=== PATIENT | female | born 1995 | race Caucasian/White ===

== ENCOUNTER 2016-10-12 17:10 | Emergency (ER) | payer BC, OTHER ==
[2016-10-12 18:18] VITALS: BP 143/74; PULSE 100; RESP 18; TEMP 98.4
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
== END 2016-10-12 19:24 | disposition home or self-care (01) ==
LOC: EC 17:10
DX: R21 Rash and other nonspecific skin eruption (principal); F32.9 Major depressive disorder, single episode, unspecified; F17.200 Nicotine dependence, unspecified, uncomplicated; Z91.011 Allergy to milk products; Z91.048 Other nonmedicinal substance allergy status; Z91.038 Other insect allergy status; Z79.899 Other long term (current) drug therapy; Z79.3 Long term (current) use of hormonal contraceptives
CPT/HCPCS: 99282

== ENCOUNTER 2016-11-13 09:43 | Emergency (ER) | payer BC, OTHER ==
[2016-11-13 10:13] VITALS: RESP 18; TEMP 97.8
[2016-11-13] MEDS ORDERED: SODIUM CHLORIDE 0.9% 1,000 ML IV STA ×2 (10:32→10:33)
[2016-11-13] MEDS ORDERED: FAMOTIDINE 20 MG/2 ML VIAL IV STA (10:32)
[2016-11-13] MEDS ORDERED: METOCLOPRAMIDE 5 MG/ML 2 ML VIAL IVP STA (10:33)
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
[2016-11-13 10:52] LABS: Basophils % (A) 0 %; CH 31.5; CHCM 34.5; Eosinophils % (A) 0 %; HCT 40.4 % (34.0-46.0); HDW 2.37; HGB 13.7 gm/dL (11.4-16.0); Luc # (Auto) 0.08; Luc % (Auto) 1; Lymphocytes # (A) 0.6 k/uL (1.0-4.8); Lymphocytes % (A) 7 %; MCH 30.9 pg (25.0-35.0); MCHC 33.8 g/dL (31.0-37.0); MCV 91.5 fL (80.0-100.0); Mean Platelet Volume 8.5; Monocytes # (A) 0.4 k/uL (0-1.0); Monocytes % (A) 5 %; Neutrophils # (A) 6.9 k/uL (1.3-7.7); Neutrophils % (A) 87 %; RBC 4.42 m/uL (3.80-5.40); RDW 13.2 % (11.5-15.5); WBC (Perox) 7.96
[2016-11-13 10:56] LABS: Appearance,Urine Turbid (Clear); Bilirubin,Urine Negative (Negative); Glucose,Urine (UA) Negative (Negative); Ketones,Urine Trace (Negative); Leukocyte Esterase,Urine Negative (Negative); Mucus,Urine Rare /hpf; Nitrite,Urine Negative (Negative); Particle Count 10808; Protein,Urine Trace (Negative); Specific Gravity,Urine 1.019 (1.001-1.035); Squamous Epithelial Cell,Urine 4 /hpf (0-4); UA Billing (MACRO vs. MICRO) MICRO; Urobilinogen,Urine <2.0 mg/dL (<2.0)
[2016-11-13 11:02] LABS: ALT 25 U/L (9-52); AST 20 U/L (14-36); Alkaline Phosphatase 51 U/L (38-126); Anion Gap 11 mmol/L; Blood Urea Nitrogen 10 mg/dL (7-17); Calcium 9.4 mg/dL (8.4-10.2); Carbon Dioxide 24 mmol/L (22-30); Chloride 105 mmol/L (98-107); Glucose 92 mg/dL (74-99); Magnesium 1.7 mg/dL (1.6-2.3); Non-African American GFR(MDRD) >60 (>60 ml/min/1.73 sqM); Potassium 3.9 mmol/L (3.5-5.1); Sodium 140 mmol/L (137-145); Total Bilirubin 1.1 mg/dL (0.2-1.3)
[2016-11-13 12:45] VITALS: BP 105/98; PULSE 98
== END 2016-11-13 12:39 | disposition home or self-care (01) ==
LOC: EC 09:43
DX: O21.9 Vomiting of pregnancy, unspecified (principal); R19.7 Diarrhea, unspecified; O99.331 Smoking (tobacco) complicating pregnancy, first trimester; F17.200 Nicotine dependence, unspecified, uncomplicated; O26.891 Other specified pregnancy related conditions, first trimester; G43.909 Migraine, unspecified, not intractable, without status migrainosus; O99.341 Other mental disorders complicating pregnancy, first trimester; F31.9 Bipolar disorder, unspecified; F43.10 Post-traumatic stress disorder, unspecified; Z3A.10 10 weeks gestation of pregnancy; Z79.899 Other long term (current) drug therapy
CPT/HCPCS: 99284; 96374; 96375; 96361 ×2; 36415; 80053; 83690; 83735; 85025; 81001; 84702; J2765

== ENCOUNTER 2016-11-29 12:34 | Emergency (ER) | payer BC, OTHER ==
[2016-11-29] MEDS ORDERED: SODIUM CHLORIDE 0.9% 1,000 ML IV ONE (13:07)
[2016-11-29] MEDS ORDERED: METOCLOPRAMIDE 5 MG/ML 2 ML VIAL IVP STA (13:07)
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
[2016-11-29 13:43] LABS: Basophils % (A) 1 %; CH 31.7; CHCM 35.3; Eosinophils # (A) 0.1 k/uL (0-0.7); Eosinophils % (A) 1 %; HCT 37.4 % (34.0-46.0); HDW 2.52; HGB 13.3 gm/dL (11.4-16.0); Luc # (Auto) 0.11; Luc % (Auto) 2; Lymphocytes # (A) 1.5 k/uL (1.0-4.8); Lymphocytes % (A) 24 %; MCHC 35.5 g/dL (31.0-37.0); MCV 90.2 fL (80.0-100.0); Mean Platelet Volume 9.1; Monocytes # (A) 0.3 k/uL (0-1.0); Monocytes % (A) 5 %; Neutrophils # (A) 4.2 k/uL (1.3-7.7); Neutrophils % (A) 68 %; RBC 4.15 m/uL (3.80-5.40); WBC 6.1 k/uL (4.0-11.0); WBC (Perox) 6.43
[2016-11-29 14:00] LABS: ALT 26 U/L (9-52); AST 20 U/L (14-36); Alkaline Phosphatase 41 U/L (38-126); Anion Gap 9 mmol/L; Blood Urea Nitrogen 6 mg/dL (7-17); Calcium 9.5 mg/dL (8.4-10.2); Carbon Dioxide 22 mmol/L (22-30); Chloride 106 mmol/L (98-107); Glucose 74 mg/dL (74-99); Non-African American GFR(MDRD) >60 (>60 ml/min/1.73 sqM); Potassium 4.1 mmol/L (3.5-5.1); Sodium 137 mmol/L (137-145); Total Protein 6.4 g/dL (6.3-8.2)
[2016-11-29 14:33] VITALS: TEMP 98.5
[2016-11-29 14:34] VITALS: BP 103/51; PULSE 78; RESP 14
== END 2016-11-29 14:34 | disposition home or self-care (01) ==
LOC: EC 12:34
DX: O21.0 Mild hyperemesis gravidarum (principal); Z3A.12 12 weeks gestation of pregnancy; Z87.891 Personal history of nicotine dependence
CPT/HCPCS: 36415; 80053; 85025; 99284; 96374; J2765

== ENCOUNTER 2016-12-22 08:31 | Emergency (ER) | payer BC, OTHER ==
[2016-12-22] MEDS ORDERED: METOCLOPRAMIDE 5 MG/ML 2 ML VIAL IVP STA (08:54)
[2016-12-22] MEDS ORDERED: SODIUM CHLORIDE 0.9% 1,000 ML IV STA ×2 (08:54)
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
[2016-12-22 09:27] LABS: Basophils % (A) 0 %; CH 32.1; CHCM 35.5; Eosinophils % (A) 0 %; HCT 35.4 % (34.0-46.0); HDW 2.55; HGB 12.3 gm/dL (11.4-16.0); Luc # (Auto) 0.09; Luc % (Auto) 2; Lymphocytes # (A) 0.9 k/uL (1.0-4.8); Lymphocytes % (A) 16 %; MCH 31.4 pg (25.0-35.0); MCHC 34.6 g/dL (31.0-37.0); MCV 90.6 fL (80.0-100.0); Mean Platelet Volume 9.3; Monocytes # (A) 0.3 k/uL (0-1.0); Monocytes % (A) 5 %; Neutrophils # (A) 4.3 k/uL (1.3-7.7); Neutrophils % (A) 77 %; RDW 13.3 % (11.5-15.5); WBC 5.6 k/uL (4.0-11.0); WBC (Perox) 5.78
[2016-12-22 09:44] LABS: Amorphous Sediment,Urine Rare /hpf; Appearance,Urine Cloudy (Clear); Bacteria,Urine Rare /hpf; Bilirubin,Urine Negative (Negative); Glucose,Urine (UA) Negative (Negative); Ketones,Urine 2+ (Negative); Leukocyte Esterase,Urine Large (Negative); Mucus,Urine Many /hpf; Nitrite,Urine Negative (Negative); Particle Count 16490; Protein,Urine 1+ (Negative); RBC,Urine 2 /hpf (0-5); Specific Gravity,Urine 1.018 (1.001-1.035); Squamous Epithelial Cell,Urine 37 /hpf (0-4); UA Billing (MACRO vs. MICRO) MICRO; Urobilinogen,Urine <2.0 mg/dL (<2.0); WBC,Urine 15 /hpf (0-5)
[2016-12-22 09:54] LABS: ALT 28 U/L (9-52); AST 21 U/L (14-36); Alkaline Phosphatase 44 U/L (38-126); Anion Gap 8 mmol/L; Blood Urea Nitrogen 8 mg/dL (7-17); Calcium 9.2 mg/dL (8.4-10.2); Carbon Dioxide 23 mmol/L (22-30); Chloride 106 mmol/L (98-107); Glucose 88 mg/dL (74-99); Non-African American GFR(MDRD) >60 (>60 ml/min/1.73 sqM); Potassium 4.1 mmol/L (3.5-5.1); Sodium 137 mmol/L (137-145); Total Bilirubin 0.9 mg/dL (0.2-1.3); Total Protein 6.1 g/dL (6.3-8.2)
[2016-12-22 10:35] VITALS: BP 103/55; PULSE 85; RESP 16; TEMP 97.9
== END 2016-12-22 10:35 | disposition home or self-care (01) ==
LOC: EC 08:31
DX: O21.0 Mild hyperemesis gravidarum (principal); O20.9 Hemorrhage in early pregnancy, unspecified; O99.89 Other specified diseases and conditions complicating pregnancy, childbirth and the puerperium; R10.30 Lower abdominal pain, unspecified; Z3A.15 15 weeks gestation of pregnancy; Z87.891 Personal history of nicotine dependence; Z79.899 Other long term (current) drug therapy; Z91.011 Allergy to milk products; Z91.048 Other nonmedicinal substance allergy status
CPT/HCPCS: 36415; 86900; 86901; 80053; 85025; 81001; 87086; 99284; 96374; 96361; J2765

== ENCOUNTER 2017-02-14 10:58 | Emergency (ER) | payer BC, OTHER ==
[2017-02-14 11:06] VITALS: BP 113/66; PULSE 81; RESP 20; TEMP 97.1
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
== END 2017-02-14 11:46 | disposition home or self-care (01) ==
LOC: EC 10:58
DX: O99.89 Other specified diseases and conditions complicating pregnancy, childbirth and the puerperium (principal); R07.89 Other chest pain; Z87.891 Personal history of nicotine dependence; Z91.048 Other nonmedicinal substance allergy status; Z91.030 Bee allergy status; Z91.011 Allergy to milk products; Z3A.23 23 weeks gestation of pregnancy; Z79.899 Other long term (current) drug therapy
CPT/HCPCS: 93005; 99284

== ENCOUNTER 2017-02-27 16:44 | Outpatient (CLI) | payer BC, OTHER ==
[2017-02-27 17:32] VITALS: BP 114/58; PULSE 79; RESP 16; TEMP 96.7
[2017-02-27 17:39] LABS: Appearance,Urine Clear (Clear); Bilirubin,Urine Negative (Negative); Glucose,Urine (UA) Negative (Negative); Ketones,Urine Negative (Negative); Leukocyte Esterase,Urine Negative (Negative); Nitrite,Urine Negative (Negative); PH, Urine 7.5 (5.0-8.0); Protein,Urine Negative (Negative); Specific Gravity,Urine 1.013 (1.001-1.035); UA Billing (MACRO vs. MICRO) CHEM; Urobilinogen,Urine <2.0 mg/dL (<2.0)
== END 2017-02-27 17:56 | disposition home or self-care (01) ==
LOC: FBPOP 16:44
PROVIDERS: ATTEND Obstetrics & Gynecology
DX: O99.89 Other specified diseases and conditions complicating pregnancy, childbirth and the puerperium (principal); R10.9 Unspecified abdominal pain; Z3A.25 25 weeks gestation of pregnancy
CPT/HCPCS: 81003; 99213

== ENCOUNTER 2017-04-09 20:16 | Outpatient (CLI) | payer BC, OTHER ==
[2017-04-09 20:38] LABS: Amorphous Sediment,Urine Few /hpf; Appearance,Urine Turbid (Clear); Bilirubin,Urine Negative (Negative); Glucose,Urine (UA) Negative (Negative); Ketones,Urine Negative (Negative); Leukocyte Esterase,Urine Trace (Negative); Nitrite,Urine Negative (Negative); Particle Count 16983; Protein,Urine 1+ (Negative); RBC,Urine >182 /hpf (0-5); Specific Gravity,Urine 1.017 (1.001-1.035); Squamous Epithelial Cell,Urine 8 /hpf (0-4); UA Billing (MACRO vs. MICRO) MICRO; Urobilinogen,Urine <2.0 mg/dL (<2.0); WBC,Urine 17 /hpf (0-5)
[2017-04-09 20:39] VITALS: BP 136/62; PULSE 90; RESP 16; TEMP 96.4
[2017-04-09] MEDS ORDERED: Acetaminophen-Codeine 300-30mg TAB PO STA (20:45)
--- NOTE | 2017-07-03 09:42 | P.MSEPDOC ---
Presenting Problems - Arrival Data Date of Arrival on Unit: 04/09/17 Time of Arrival on Unit: 20:15 Mode of Transport: Ambulatory - Complaint OB-Reason for Admission/Chief Complaint: Pain Medical History - Information : 1 Para: 0 Term: 0 : 0 Abortions: Spontaneous or Elective: 0 Number of Living Children: 0 - Gestational Age Gestational Age by MARY ELLEN (wks/days): 31 Weeks and 0 Days Review of Systems - Review of Systems Constitutional: No problems Breast: No problems ENT: No problems Cardiovascular: No problems Respiratory: No problems Gastrointestinal: No problems Genitourinary: No problems Musculoskeletal: No problems Neurological: No problems Skin: No problems Vital Signs - Temperature Temperature: 96.4 F Temperature Source: Tympanic - Pulse Right Sitting Pulse Rate: 90 Pulse Assessment Method: Automatic Cuff - Respirations Respiratory Rate: 16 Oxygen Delivery Method: Room Air O2 Sat by Pulse Oximetry: 99 - Blood Pressure Right Arm Blood Pressure: 136/62 Blood Pressure Mean: 86 Blood Pressure Source: Automatic Cuff Medical Screen Scoring (Pre) - Cervical Exam Dilation: 0 cm = 0 Effacement: More than 50% = 2 Membranes: Intact - Uterine Contractions Frequency: N/A Duration: N/A Intensity: N/A - Maternal Vital Signs Maternal Temperature: N/A Maternal Respirations: N/A - Maternal Trauma Maternal Trauma: N/A - Assessment Baseline FHR: 145 Heart Rate - NICHD Category: Category I (Normal) = 0 NST: Reactive Position: N/A Station: N/A - Total Score Total Score (Pre): 2 - Level of Risk Level of Risk: Low (0-5) Physician Notification (Pre) - Physician Notified Physician Notified Date: 04/09/17 Physician Notified Time: 20:38 Physician/Practitioner Notifed:: Dr. Tanner Spoke With: Dr. Tanner Disposition - Disposition OB Disposition: Physician follow up in office, Discharge to home Discharge Date: 04/09/17 Discharge Time: 21:05 I agree with the RN Medical Screening Exam: Yes Risk & Benefit of care provided described in d/c instruction: Yes Diagnosis: FALSE LABOR BEFORE 37 COMPLETED WEEKS OF GEST, THIRD TRI
== END 2017-04-09 21:06 | disposition home or self-care (01) ==
LOC: FBPOP 20:16
PROVIDERS: ATTEND Obstetrics & Gynecology
DX: O47.03 False labor before 37 completed weeks of gestation, third trimester (principal); Z3A.31 31 weeks gestation of pregnancy
CPT/HCPCS: 59025; 81001; 87086; 99213

== ENCOUNTER 2017-05-20 17:57 | Outpatient (CLI) | payer BC, OTHER ==
[2017-05-20 19:14] VITALS: BP 126/63; PULSE 105; RESP 16; TEMP 98
--- NOTE | 2017-06-02 11:18 | P.MSEPDOC ---
Presenting Problems - Arrival Data Date of Arrival on Unit: 05/20/17 Time of Arrival on Unit: 18:00 Mode of Transport: Ambulatory - Complaint OB-Reason for Admission/Chief Complaint: Possible Onset of Labor Medical History - Information : 1 Para: 0 Term: 0 : 0 Abortions: Spontaneous or Elective: 0 Number of Living Children: 0 - Gestational Age Expected Date of Delivery: 06/11/17 Gestational Age by MARY ELLEN (wks/days): 38 Weeks and 5 Days Review of Systems - Review of Systems Constitutional: No problems Breast: No problems ENT: No problems Cardiovascular: No problems Respiratory: No problems Gastrointestinal: No problems Genitourinary: No problems Musculoskeletal: No problems Neurological: No problems Skin: No problems Vital Signs - Temperature Temperature: 98.0 F Temperature Source: Oral - Pulse Right Brachial Pulse Rate: 105 Pulse Assessment Method: Automatic Cuff - Respirations Respiratory Rate: 16 Oxygen Delivery Method: Room Air - Blood Pressure Right Arm Blood Pressure: 126/63 Blood Pressure Mean: 84 Blood Pressure Source: Automatic Cuff Medical Screen Scoring (Pre) - Cervical Exam Dilation: 0 cm = 0 Membranes: Intact - Uterine Contractions Frequency: N/A Duration: N/A Intensity: N/A - Maternal Vital Signs Maternal Temperature: N/A Signs of Preeclampsia: N/A Maternal Respirations: N/A - Maternal Trauma Maternal Trauma: N/A - Assessment Heart Rate - NICHD Category: Category I (Normal) = 0 NST: Reactive Position: N/A - Total Score Total Score (Pre): 0 - Level of Risk Level of Risk: Low (0-5) Physician Notification (Pre) - Physician Notified Physician Notified Date: 05/20/17 Physician Notified Time: 18:30 Physician/Practitioner Notifed:: Dr. Jasmine Spoke With: Dr. Jasmine New Order Received: Yes - Notification Comment Comment: d/c home Disposition - Disposition OB Disposition: Discharge to home Discharge Date: 05/20/17 Discharge Time: 19:00 I agree with the RN Medical Screening Exam: No Physician's MSE Comment: The stated gestational age at the time of admission is inaccurate. The remainder of the MSE is accurate. Risk & Benefit of care provided described in d/c instruction: Yes Diagnosis: FALSE LABOR, UNSPECIFIED
== END 2017-05-20 19:17 | disposition home or self-care (01) ==
LOC: FBPOP 17:57
PROVIDERS: ATTEND Obstetrics & Gynecology
DX: O47.03 False labor before 37 completed weeks of gestation, third trimester (principal); Z3A.36 36 weeks gestation of pregnancy
CPT/HCPCS: 59025; 99213

== ENCOUNTER 2017-06-11 11:29 | Inpatient (IN) | payer BC, OTHER ==
[2017-06-14] MEDS ORDERED: LIDOCAINE 1% (PF) 10 MG/ML (30 ML SDV) SQ PRN (06:29)
[2017-06-14] MEDS ORDERED: METHYLERGONOVINE 0.2 MG/ML 1 ML AMP IM PRN (06:29)
[2017-06-14] MEDS ORDERED: CARBOPROST TROMETHAMINE 250 MCG/ML 1 ML AMP IM PRN (06:29)
[2017-06-14] MEDS ORDERED: TERBUTALINE 1 MG/ML VIAL SQ PRN (06:29)
[2017-06-14] MEDS ORDERED: OXYTOCIN 10 UNIT/ML 1 ML VIAL IM PRN (06:29)
[2017-06-14] MEDS ORDERED: OXYTOCIN 20 UNITS/1000 ML NS 1,000 ML IV SCH ×2 (06:30→16:15)
[2017-06-14 07:01] LABS: Basophils % (A) 0 %; CH 26.8; CHCM 31.8; Eosinophils # (A) 0.1 k/uL (0-0.7); Eosinophils % (A) 1 %; HCT 31.6 % (34.0-46.0); HDW 3.15; HGB 10.3 gm/dL (11.4-16.0); Hypochromasia Slight; Luc # (Auto) 0.25; Luc % (Auto) 3; Lymphocytes # (A) 1.6 k/uL (1.0-4.8); Lymphocytes % (A) 16 %; MCH 27.5 pg (25.0-35.0); MCHC 32.5 g/dL (31.0-37.0); MCV 84.6 fL (80.0-100.0); Mean Platelet Volume 8.1; Monocytes # (A) 0.5 k/uL (0-1.0); Monocytes % (A) 5 %; Neutrophils # (A) 7.5 k/uL (1.3-7.7); Neutrophils % (A) 76 %; RBC 3.73 m/uL (3.80-5.40); WBC 9.9 k/uL (3.8-10.6); WBC (Perox) 10.34
[2017-06-14 07:14] VITALS: BMI 30.7
[2017-06-14] MEDS: LACTATED RINGERS 1,000 ML IV SCH ×3 (07:15→11:30)
[2017-06-14] MEDS ORDERED: BUTORPHANOL 1 MG/ML 1 ML VIAL IV PRN (09:26)
[2017-06-14] MEDS ORDERED: BUPIVACAINE (PF) 0.25% 30 ML VIAL ONE (10:27)
[2017-06-14] MEDS ORDERED: fentaNYL (PF) 50 MCG/ML 5 ML AMP ONE (10:27)
[2017-06-14] MEDS ORDERED: SODIUM CHLORIDE 0.9% 100 ML BAG ONE (10:27)
[2017-06-14] MEDS ORDERED: BUPIVACAINE (PF) 0.25% 25 ML, fentaNYL (PF) 200 MCG in SODIUM CHLORIDE 0.9% 71 ML EPIDURAL ONE (11:26)
[2017-06-14] MEDS ORDERED: HYDROCORTISONE 2.5% RECTAL CREAM 30 GM TUBE RECTAL PRN (16:03)
[2017-06-14] MEDS ORDERED: ACETAMINOPHEN TAB 325 MG TAB PO PRN (16:03)
[2017-06-14] MEDS ORDERED: Acetaminophen-Codeine 300-30mg TAB PO PRN ×2 (16:03)
[2017-06-14] MEDS ORDERED: SIMETHICONE 80 MG CHEWABLE PO PRN (16:03)
[2017-06-14] MEDS ORDERED: diphenhydrAMINE 25 MG CAP PO PRN (16:03)
[2017-06-14] MEDS ORDERED: ZOLPIDEM 5 MG TAB PO PRN (16:03)
[2017-06-14] MEDS ORDERED: WITCH HAZEL 1 EACH MED..PAD TOPICAL PRN (16:03)
[2017-06-14] MEDS ORDERED: diphenhydrAMINE 50 MG/ML 1 ML VIAL IVP PRN ×2 (16:03)
[2017-06-14] MEDS ORDERED: diphenhydrAMINE 50 MG CAP PO PRN (16:03)
[2017-06-14] MEDS ORDERED: LANOLIN CREAM 5 GM TUBE TOPICAL PRN (16:03)
[2017-06-14] MEDS ORDERED: BENZOCAINE/MENTHOL SPRAY 1 GM/SPRAY AEROSOL TOPICAL PRN (16:03)
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
--- NOTE | 2017-06-14 16:11 | P.PROBDLV ---
Vaginal Delivery Note - . Vaginal Delivery Note: The patient is a 22-year-old 1 para 0 admitted at 40-3/7 weeks by good dating parameters perches admitted for induction of labor with Pitocin and all signs are reassuring. Her was found with a single umbilical artery and had weekly testing after 32 weeks which was reassuring. She otherwise had a single episode of nephrolithiasis at 31 weeks which resolved. On labor and delivery, she had Pitocin augmentation started and underwent artificial rupture of membranes of clear fluid. After long discussion with anesthesia secondary to the possibility of Arnold-Chiari findings, anesthesia agreed to place an epidural which was done just before the onset of the active phase of labor. She then progressed persistently and fairly quickly through the active phase of labor to complete and 0 station. She pushed over the course of approximately 1 hour to a normal spontaneous vaginal delivery of a viable 8 lbs. 6 oz. baby boy with Apgars of 9 at 1 minute and 9 at 5 minutes delivered in the direct occiput anterior position. The placenta was delivered spontaneously, intact, and grossly normal with a grossly normal, centrally inserted 2 vessel cord. A small second-degree midline episiotomy had been cut for delivery and was repaired in standard fashion using 3-0 chromic catgut without difficulty. Estimated blood loss for the entire case was approximately 250 mL. There were no complications. All sponge, instrument, and needle counts were correct. Both mother and infant are resting comfortably in recovery.
[2017-06-14] MEDS: IBUPROFEN 600 MG TAB PO PRN (19:37)
[2017-06-14] MEDS: SENNOSIDES-DOCUSATE SODIUM 1 EACH TAB PO SCH (20:12)
[2017-06-15] MEDS: IBUPROFEN 600 MG TAB PO PRN ×3 (06:10→19:34)
--- NOTE | 2017-06-15 08:42 | P.PNOBGVD ---
Subjective - Subjective Patient reports: Reports appetite normal, Reports voiding normally, Reports pain well controlled, Reports ambulating normally : doing well Objective - Latest Vital Signs Latest vital signs: Vital Signs Temp Pulse Resp BP 06/15/17 08:00 97.3 F L 101 H 14 126/76 06/15/17 04:00 98.3 F 99 16 111/58 06/15/17 00:00 98.3 F 80 16 133/73 06/14/17 20:00 99.4 F 96 16 123/73 06/14/17 17:52 97.3 F L 107 H 16 128/70 06/14/17 17:22 96 14 117/60 06/14/17 16:52 96 14 120/60 06/14/17 16:37 84 14 115/57 06/14/17 16:18 93 14 111/62 06/14/17 16:07 92 14 120/67 06/14/17 15:52 97.9 F 105 H 18 127/68 Intake and Output 06/14/17 06/15/17 06/15/17 22:59 06:59 14:59 Intake Total 1999 Balance 1999 Intake: IV 1000 Lactated Ringers 1,000 ml 1000 @ 125 mls/hr IV .Q8H ANA LILIA Rx#:[id number] Intake, IV Titration 1000 Amount Oxytocin 20 Units/1000 ml 1000 Ns 1,000 ml @ Per Protocol IV .Q0M ANA LILIA Rx#: [id number] Other: # Voids 1 2 - Exam Lungs: bilateral: normal Chest: Normal S1, Normal S2 Extremities: Present: normal, edema (Trace to +1 bilateral edema from the mid calf.) Abdomen: Present: normal appearance, soft Uterus: Present: normal, firm (The uterine fundus as tonic and nontender below the umbilicus.) Assessment and Plan (1) Post-dates Current Visit: Yes Status: Acute Code(s): O48.0 - POST-TERM SNOMED Code(s): 00343172 (2) Normal spontaneous vaginal delivery Narrative/Plan: Continue routine care. Anticipate discharge home tomorrow pending complications. Current Visit: Yes Status: Acute Code(s): O80 - ENCOUNTER FOR FULL-TERM UNCOMPLICATED DELIVERY SNOMED Code(s): 89779257
[2017-06-15] MEDS: SENNOSIDES-DOCUSATE SODIUM 1 EACH TAB PO SCH ×2 (09:10→20:03)
[2017-06-15 17:32] VITALS: RESP 16
[2017-06-16] MEDS: IBUPROFEN 600 MG TAB PO PRN ×2 (00:50→09:53)
[2017-06-16 09:52] VITALS: BP 125/72; PULSE 104; TEMP 98.6
[2017-06-16] MEDS: SENNOSIDES-DOCUSATE SODIUM 1 EACH TAB PO SCH (09:52)
--- NOTE | 2017-06-16 10:45 | P.DS ---
Providers Date of admission: 06/14/17 06:10 Expected date of discharge: 06/16/17 Attending physician: Edward Jasmine Primary care physician: Stated None - Discharge Diagnosis(es) (1) Post-dates Current Visit: Yes Status: Acute (2) Normal spontaneous vaginal delivery Current Visit: Yes Status: Acute Hospital Course: The patient is a 22-year-old 1 para 0 admitted at 40-3/7 weeks by good dating parameters perches admitted for postdates induction of labor with all signs reassuring. Her was complicated with a finding of single umbilical artery which was managed with weekly reassuring testing after 32 weeks. She additionally had nephrolithiasis on one occasion during the at 31 weeks which resolved. Group B strep status is negative. On labor and delivery, she had Pitocin augmentation started and underwent artificial rupture of membranes. She had an epidural catheter placed for analgesia and then ultimately progressed to complete where after she pushed to a normal spontaneous vaginal delivery of a viable 8 lbs. 6 oz. baby boy with Apgars of 9 at 1 minute and 9 at 5 minutes. Her course was unremarkable vital signs remaining stable and her temperature was afebrile throughout. She was deemed stable for discharge by day #2 was discharged home to follow-up in the office in 6 weeks' time routinely. Discharge instructions included calling for any significantly increased bleeding or foul-smelling lochia, significantly increased fever or abdominal pain, perineal complaints, breast complaints, or anything else that concerned her. She is additionally instructed to have nothing in the vagina for at least 6 weeks time to include intercourse. She understood her instructions and agrees to follow up as noted above. Discharge medications included continued vitamins as she has opted to breast-feed. She additionally was to use [id number] analgesic pain medications. She was provided with a prescription for a dual electric breast pump. Maternal blood type is O+ and rubella status is immune. Procedures: #1. Pitocin induction #2. Artificial rupture of membranes #3. Epidural analgesia #4. Normal spontaneous vaginal delivery #5. Second-degree midline episiotomy and repair Patient Condition at Discharge: Good Plan - Discharge Summary New Discharge Prescriptions: No Action Pnv,Calcium 72/Iron/Folic Acid [ Plus Tablet] 1 tab PO DAILY Discharge Medication List Pnv,Calcium 72/Iron/Folic Acid [ Plus Tablet] 1 tab PO DAILY 11/29/16 [ History] Follow up Appointment(s)/Referral(s): Edward Jasmine MD [STAFF PHYSICIAN] - 6 Weeks Discharge Disposition: HOME SELF-CARE
== END 2017-06-16 13:12 | disposition home or self-care (01) | DRG 775 ==
LOC: 4FBP 06-14 06:10
PROVIDERS: ADMIT Obstetrics & Gynecology; ATTEND Obstetrics & Gynecology
PROC: 3E0R3CZ (ICD-10-PCS; principal; 2017-06-14)
PROC: 3E033VJ Introduction of Other Hormone into Peripheral Vein, Percutaneous Approach (ICD-10-PCS; principal; 2017-06-14)
PROC: 10E0XZZ Delivery of Products of Conception, External Approach (ICD-10-PCS; principal; 2017-06-14)
PROC: 10907ZC Drainage of Amniotic Fluid, Therapeutic from Products of Conception, Via Natural or Artificial Opening (ICD-10-PCS; principal; 2017-06-14)
PROC: 00HU33Z Insertion of Infusion Device into Spinal Canal, Percutaneous Approach (ICD-10-PCS; principal; 2017-06-14)
PROC: 0W8NXZZ Division of Female Perineum, External Approach (ICD-10-PCS; principal; 2017-06-14)
DX: O48.0 Post-term pregnancy (principal); F17.200 Nicotine dependence, unspecified, uncomplicated; Z37.0 Single live birth; O99.334 Smoking (tobacco) complicating childbirth; O69.89X0 Labor and delivery complicated by other cord complications, not applicable or unspecified; Z3A.40 40 weeks gestation of pregnancy; Z87.442 Personal history of urinary calculi
CPT/HCPCS: 85025; 88307

== ENCOUNTER 2017-07-13 11:40 | Emergency (ER) | payer BC, OTHER ==
[2017-07-13 12:05] VITALS: RESP 18
--- NOTE | 2017-07-13 12:11 | ED ---
General Adult HPI - General Chief complaint: Extremity Injury, Upper Stated complaint: LEFT WRIST INJURY FROM FALL Time Seen by Provider: 07/13/17 12:07 Source: patient, RN notes reviewed Mode of arrival: ambulatory Limitations: physical limitation - History of Present Illness Initial comments: 22-year-old female who presents emergency room today with chief complaint of injury to the left wrist that occurred earlier today. She does not that she lost her balance falling down the basement steps falling down and landed on the left wrist. She has mid to pain locally to the distal radius. She states worse with certain movements of flexion and extension. Patient denies any other injuries or complaints. Patient denies any recent fever, chills, shortness of breath, chest pain, back pain, abdominal pain, nausea or vomiting, numbness or tingling, dysuria or hematuria, constipation or diarrhea, headaches or visual changes, or any other complaints. - Related Data Home Medications Medication Instructions Recorded Confirmed Pnv,Calcium 72/Iron/Folic Acid 1 tab PO DAILY 11/29/16 06/14/17 [ Plus Tablet] Allergies Allergy/AdvReac Type Severity Reaction Status Date / Time milk Allergy Intermediate Nausea & Verified 07/13/17 12:05 Vomiting adhesive Allergy Rash/Hives Verified 07/13/17 12:05 insect venom Allergy Anaphylaxis Verified 07/13/17 12:05 lactose Allergy Nausea & Verified 07/13/17 12:05 Vomiting Milk Containing Products Allergy Nausea & Verified 07/13/17 12:05 Vomiting Review of Systems ROS Statement: Those systems with pertinent positive or pertinent negative responses have been documented in the HPI. ROS Other: All systems not noted in ROS Statement are negative. Past Medical History Past Medical History: Musculoskeletal Disorder Additional Past Medical History / Comment(s): chiari syndrome, bilateral hip tendanitis (r/t basic training) migraines History of Any Multi-Drug Resistant Organisms: None Reported Past Surgical History: No Surgical Hx Reported Additional Past Surgical History / Comment(s): wisdom teeth removed Past Anesthesia/Blood Transfusion Reactions: No Reported Reaction Past Psychological History: Anxiety, Bipolar, Depression, PTSD Smoking Status: Current some day smoker Past Alcohol Use History: None Reported Past Drug Use History: None Reported - Past Family History Mother Additional Family Medical History / Comment(s): bipolar, Schizophrenia General Exam - General Exam Comments Initial Comments: General: The patient is awake and alert, in no distress, and does not appear acutely ill. Neck: The neck is supple, there is no tenderness or JVD. Cardiovascular: There is a regular rate and rhythm. No murmur, rub or gallop is appreciated. Respiratory: Lungs are clear to auscultation, respirations are non-labored, breath sounds are equal. No wheezes, stridor, rales, or rhonchi. Musculoskeletal: Patient has normal appearance of left wrist no obvious deformity. Shows good range of motion. No tenderness over the radial side or into the elbow. No tenderness down to the left hand or digits. Cap refill less than 2 seconds. Sensations intact pulses equal bilaterally 2+. Patient does have tenderness over the snuffbox and distal radius. Neurological: A&O x 3. CN II-XII intact, There are no obvious motor or sensory deficits. Coordination appears grossly intact. Speech is normal. Skin: Skin is warm and dry and no rashes or lesions are noted. Psychiatric: Normal mood and affect. Limitations: physical limitation Course Vital Signs 07/13/17 11:59 Temperature 98.2 F Pulse Rate 90 Respiratory 18 Rate Blood Pressure 117/67 O2 Sat by Pulse 98 Oximetry Medical Decision Making - Medical Decision Making X-ray reviewed and negative for any acute fracture dislocation. Patient does have tenderness of possible has been splinted in a short arm thumb spica OCL. Neurovascular rechecked and intact. Patient is advised follow-up with orthopedics over the next 2 days. Disposition Clinical Impression: Left wrist injury Disposition: HOME SELF-CARE Condition: Good Instructions: Wrist Injury (ED) Additional Instructions: Please leave splint in place until follow-up orthopedics over the next 2 days. Please continue to ice elevate the affected area. Please return for any other concerns. Referrals: None,Stated [Primary Care Provider] - 1-2 days Krunal Cortez MD [Medical Doctor] - 1-2 days Time of Disposition: 12:56
--- NOTE | 2017-07-13 12:41 | XR ---
EXAMINATION TYPE: XR wrist complete LT DATE OF EXAM: 07/13/2017 COMPARISON: NONE HISTORY: 22-year-old female with wrist pain after fall TECHNIQUE: 4 views FINDINGS: The radiocarpal and distal radioulnar joints as well as the midcarpal compartment appear intact. Mild negative ulnar variance is noted. No acute fracture, subluxation, or dislocation. IMPRESSION: No acute osseous abnormality seen.
[2017-07-13 13:10] VITALS: BP 116/73; PULSE 65; TEMP 97
== END 2017-07-13 13:10 | disposition home or self-care (01) ==
LOC: EC 11:40
DX: S69.92XA Unspecified injury of left wrist, hand and finger(s), initial encounter (principal); F17.200 Nicotine dependence, unspecified, uncomplicated; Z79.899 Other long term (current) drug therapy; Z91.011 Allergy to milk products; Z91.048 Other nonmedicinal substance allergy status; Z91.030 Bee allergy status; W10.9XXA Fall (on) (from) unspecified stairs and steps, initial encounter
CPT/HCPCS: 29125; 99283

== ENCOUNTER 2017-12-22 18:56 | Emergency (ER) | payer BC, OTHER ==
[2017-12-22 19:06] VITALS: RESP 18
[2017-12-22] MEDS ORDERED: KETOROLAC 30 MG/ML 1 ML VIAL IVP STA (20:07)
--- NOTE | 2017-12-22 20:15 | ED ---
Abdominal Pain HPI - General Chief Complaint: Abdominal Pain Stated Complaint: ABDOMINAL PAIN Time Seen by Provider: 12/22/17 19:59 Source: patient, RN notes reviewed Mode of arrival: ambulatory Limitations: no limitations - History of Present Illness Initial Comments: This is a 22-year-old female who presents to the emergency department with chief complaint of abdominal pain. Patient states that she's been experiencing abdominal pain for the past 6 months since giving to her son. She states that today the pain progressively worsened. She describes the pain as constant , sharp and stabbing in her lower central abdomen. She admits to nausea and one episode of vomiting this morning. Denies fevers or chills. Denies diarrhea or constipation. She does state that she has a history of ovarian cysts. Denies any abdominal surgeries. She states that she has abnormal periods, stating that she had 3 periods last month. Denies shortness of breath or chest pain, dysuria or hematuria, dizziness or headache. - Related Data Home Medications Medication Instructions Recorded Confirmed No Known Home Medications [No 12/22/17 12/22/17 Known Home Medications] Allergies Allergy/AdvReac Type Severity Reaction Status Date / Time milk Allergy Intermediate Nausea & Verified 12/22/17 19:48 Vomiting adhesive Allergy Rash/Hives Verified 12/22/17 19:48 insect venom Allergy Anaphylaxis Verified 12/22/17 19:48 lactose Allergy Nausea & Verified 12/22/17 19:48 Vomiting Milk Containing Products Allergy Nausea & Verified 12/22/17 19:48 Vomiting Review of Systems ROS Statement: Those systems with pertinent positive or pertinent negative responses have been documented in the HPI. ROS Other: All systems not noted in ROS Statement are negative. Past Medical History Past Medical History: Musculoskeletal Disorder Additional Past Medical History / Comment(s): chiari syndrome, bilateral hip tendanitis (r/t basic training) migraines History of Any Multi-Drug Resistant Organisms: None Reported Past Surgical History: No Surgical Hx Reported Additional Past Surgical History / Comment(s): wisdom teeth removed Past Anesthesia/Blood Transfusion Reactions: No Reported Reaction Past Psychological History: Anxiety, Bipolar, Depression, PTSD Smoking Status: Current some day smoker Past Alcohol Use History: None Reported Past Drug Use History: None Reported - Past Family History Mother Additional Family Medical History / Comment(s): bipolar, Schizophrenia General Exam - General Exam Comments Initial Comments: General: Awake and alert, well-developed; in no apparent distress. HEENT: Head atraumatic, normocephalic. Pupils are equal, round and reactive to light. Extraocular movements intact. Oropharynx moist without erythema or exudate. Neck: Supple. Normal ROM. Cardiovascular: Regular rate and rhythm. No murmurs, rubs or gallops. Chest symmetrical. Respiratory: Lungs clear to auscultation bilaterally. No wheezes, rales or rhonchi. Normal respiratory effort with no use of accessory muscles. Abdomen: Soft, non-distended. Tenderness on palpation of suprapubic region and midline lower abdomen. No rigidity, rebound or guarding. Normal bowel sounds in all 4 quadrants. Musculoskeletal: Normal ROM, no tenderness bilateral upper and lower extremities. Ambulating normally. Skin: [place], warm and dry without rashes or lesions. Neurological: Alert and oriented x3. CN II-XII grossly intact. Speech is fluent and answers are appropriate. No focal neuro deficits. Psychiatric: Normal mood and affect. No overt signs of depression or anxiety noted. Limitations: no limitations Course Vital Signs 12/22/17 19:04 Temperature 98 F Pulse Rate 103 H Respiratory 18 Rate Blood Pressure 121/70 O2 Sat by Pulse 98 Oximetry Medical Decision Making - Medical Decision Making This is a 22-year-old female who presents to the emergency department with chief complaint of lower abdominal pain 6 months. Patient states that she had an increase in her abdominal pain today. Denies any hematuria, dysuria, fevers or chills, nausea or vomiting, diarrhea or constipation. Patient is tender on palpation of suprapubic region. Ultrasound was obtained which revealed evidence for a complex cyst of the right ovary. Patient does admit to a history of ovarian cysts. CBC, CMP and UA were unremarkable. Patient is in no acute distress and vital signs are stable. She will be discharged home with her recommendation to follow-up with RF TECHNICIAN. Patient is in agreement with plan and voices understanding. All questions were answered. - Lab Data Result diagrams: 12/22/17 20:20 12/22/17 20:20 Lab Results 12/22/17 12/22/17 12/22/17 Range/Units 20:20 20:20 20:20 WBC 8.4 (3.8-10.6) k/uL RBC 4.95 (3.80-5.40) m/uL Hgb 14.2 (11.4-16.0) gm/dL Hct 42.2 (34.0-46.0) % MCV 85.2 (80.0-100.0) fL MCH 28.7 (25.0-35.0) pg MCHC 33.7 (31.0-37.0) g/dL RDW 13.6 (11.5-15.5) % Plt Count 217 (150-450) k/uL Neutrophils % 65 % Lymphocytes % 25 % Monocytes % 4 % Eosinophils % 4 % Basophils % 0 % Neutrophils # 5.4 (1.3-7.7) k/uL Lymphocytes # 2.1 (1.0-4.8) k/uL Monocytes # 0.4 (0-1.0) k/uL Eosinophils # 0.4 (0-0.7) k/uL Basophils # 0.0 (0-0.2) k/uL Sodium 143 (137-145) mmol/L Potassium 3.9 (3.5-5.1) mmol/L Chloride 105 (98-107) mmol/L Carbon Dioxide 24 (22-30) mmol/L Anion Gap 14 mmol/L BUN 13 (7-17) mg/dL Creatinine 0.70 (0.52-1.04) mg/dL Est GFR (CKD-EPI)AfAm >90 (>60 ml/min/1.73 sqM) Est GFR (CKD-EPI)NonAf >90 (>60 ml/min/1.73 sqM) Glucose 89 (74-99) mg/dL Calcium 10.0 (8.4-10.2) mg/dL Total Bilirubin 0.5 (0.2-1.3) mg/dL AST 14 (14-36) U/L ALT 24 (9-52) U/L Alkaline Phosphatase 70 (38-126) U/L Total Protein 6.8 (6.3-8.2) g/dL Albumin 4.4 (3.5-5.0) g/dL Amylase 39 (30-110) U/L Lipase 57 (23-300) U/L Urine Color Urine Appearance (Clear) Urine pH (5.0-8.0) Ur Specific [place] (1.001-1.035) Urine Protein (Negative) Urine Glucose (UA) (Negative) Urine Ketones (Negative) Urine Blood (Negative) Urine Nitrite (Negative) Urine Bilirubin (Negative) Urine Urobilinogen (<2.0) mg/dL Ur Leukocyte Esterase (Negative) Urine RBC (0-5) /hpf Urine WBC (0-5) /hpf Ur Squamous Epith Cells (0-4) /hpf Amorphous Sediment (None) /hpf Urine Bacteria (None) /hpf Urine Mucus (None) /hpf Urine HCG, Qual Not Detected (Not Detectd) 12/22/17 Range/Units 20:20 WBC (3.8-10.6) k/uL RBC (3.80-5.40) m/uL Hgb (11.4-16.0) gm/dL Hct (34.0-46.0) % MCV (80.0-100.0) fL MCH (25.0-35.0) pg MCHC (31.0-37.0) g/dL RDW (11.5-15.5) % Plt Count (150-450) k/uL Neutrophils % % Lymphocytes % % Monocytes % % Eosinophils % % Basophils % % Neutrophils # (1.3-7.7) k/uL Lymphocytes # (1.0-4.8) k/uL Monocytes # (0-1.0) k/uL Eosinophils # (0-0.7) k/uL Basophils # (0-0.2) k/uL Sodium (137-145) mmol/L Potassium (3.5-5.1) mmol/L Chloride (98-107) mmol/L Carbon Dioxide (22-30) mmol/L Anion Gap mmol/L BUN (7-17) mg/dL Creatinine (0.52-1.04) mg/dL Est GFR (CKD-EPI)AfAm (>60 ml/min/1.73 sqM) Est GFR (CKD-EPI)NonAf (>60 ml/min/1.73 sqM) Glucose (74-99) mg/dL Calcium (8.4-10.2) mg/dL Total Bilirubin (0.2-1.3) mg/dL AST (14-36) U/L ALT (9-52) U/L Alkaline Phosphatase (38-126) U/L Total Protein (6.3-8.2) g/dL Albumin (3.5-5.0) g/dL Amylase (30-110) U/L Lipase (23-300) U/L Urine Color Yellow Urine Appearance Cloudy H (Clear) Urine pH 7.0 (5.0-8.0) Ur Specific [place] 1.029 (1.001-1.035) Urine Protein Trace H (Negative) Urine Glucose (UA) Negative (Negative) Urine Ketones 2+ H (Negative) Urine Blood Negative (Negative) Urine Nitrite Negative (Negative) Urine Bilirubin Negative (Negative) Urine Urobilinogen 3.0 (<2.0) mg/dL Ur Leukocyte Esterase Trace H (Negative) Urine RBC 1 (0-5) /hpf Urine WBC 2 (0-5) /hpf Ur Squamous Epith Cells 1 (0-4) /hpf Amorphous Sediment Rare H (None) /hpf Urine Bacteria Occasional H (None) /hpf Urine Mucus Moderate H (None) /hpf Urine HCG, Qual (Not Detectd) - Radiology Data Radiology results: report reviewed Transvaginal ultrasound impression: Normal uterus and endometrium. No evidence of ovarian torsion. There is a complex cyst on the right ovary that measures 3 cm. This could be hemorrhagic cyst. Correlation with test is recommended. Disposition Clinical Impression: Ovarian cyst Disposition: HOME SELF-CARE Condition: Good Instructions: Ovarian Cyst (ED) Additional Instructions: Please follow-up with RF TECHNICIAN. Please follow up with primary care provider within 1-2 days. Return to emergency department if symptoms should worsen or any concerns arise. Referrals: None,Stated [Primary Care Provider] - 1-2 days Danica Montana DO [Doctor of Osteopathic Medicine] - 1-2 days Gabriella Wu MD [STAFF PHYSICIAN] - 1-2 days Muna Chiu MD [STAFF PHYSICIAN] - 1-2 days Time of Disposition: 22:26
[2017-12-22 20:38] LABS: Basophils % (A) 0 %; Eosinophils # (A) 0.4 k/uL (0-0.7); Eosinophils % (A) 4 %; HCT 42.2 % (34.0-46.0); HGB 14.2 gm/dL (11.4-16.0); Lymphocytes # (A) 2.1 k/uL (1.0-4.8); Lymphocytes % (A) 25 %; MCH 28.7 pg (25.0-35.0); MCHC 33.7 g/dL (31.0-37.0); MCV 85.2 fL (80.0-100.0); Mean Platelet Volume 8.2; Monocytes # (A) 0.4 k/uL (0-1.0); Monocytes % (A) 4 %; Neutrophils # (A) 5.4 k/uL (1.3-7.7); Neutrophils % (A) 65 %; Platelet Count 217 k/uL (150-450); RBC 4.95 m/uL (3.80-5.40); RDW 13.6 % (11.5-15.5); WBC 8.4 k/uL (3.8-10.6)
[2017-12-22 20:41] LABS: Amorphous Sediment,Urine Rare /hpf; Appearance,Urine Cloudy (Clear); Bacteria,Urine Occasional /hpf; Bilirubin,Urine Negative (Negative); Blood,Urine Negative (Negative); Color,Urine Yellow; Glucose,Urine (UA) Negative (Negative); Ketones,Urine 2+ (Negative); Leukocyte Esterase,Urine Trace (Negative); Mucus,Urine Moderate /hpf; Nitrite,Urine Negative (Negative); Protein,Urine Trace (Negative); RBC,Urine 1 /hpf (0-5); Specific Gravity,Urine 1.029 (1.001-1.035); Squamous Epithelial Cell,Urine 1 /hpf (0-4); WBC,Urine 2 /hpf (0-5)
[2017-12-22 20:44] LABS: ALT 24 U/L (9-52); AST 14 U/L (14-36); Albumin 4.4 g/dL (3.5-5.0); Alkaline Phosphatase 70 U/L (38-126); Amylase 39 U/L (30-110); Anion Gap 14 mmol/L; Blood Urea Nitrogen 13 mg/dL (7-17); Carbon Dioxide 24 mmol/L (22-30); Chloride 105 mmol/L (98-107); Glucose 89 mg/dL (74-99); Lipase 57 U/L (23-300); Potassium 3.9 mmol/L (3.5-5.1); Sodium 143 mmol/L (137-145); Total Bilirubin 0.5 mg/dL (0.2-1.3); Total Protein 6.8 g/dL (6.3-8.2)
--- NOTE | 2017-12-22 21:54 | US ---
EXAMINATION TYPE: US transvaginal DATE OF EXAM: 12/22/2017 COMPARISON: NONE CLINICAL HISTORY: Pain. Pelvic pain for 6 months since giving TECHNIQUE: TV. Date of LMP: 12-13-2017 EXAM MEASUREMENTS: Uterus: 8.0 x 4.9 x 3.3 cm Endometrial Stripe: 0.5 cm Right Ovary: 3.6 x 2.7 x 2.6 cm Left Ovary: 2.7 x 1.8 x 1.7 cm 1. Uterus: Anteverted wnl 2. Endometrium: wnl 3. Right Ovary: appearance of involuting cyst seen measuring 2.6cm 4. Left Ovary: wnl Spectral, color and waveform doppler imaging shows good arterial and venous flow within the ovaries ; there is no evidence for ovarian torsion. 5. Bilateral Adnexa: wnl 6. Posterior cul-de-sac: wnl IMPRESSION: Normal uterus and endometrium. No evidence of ovarian torsion. There is a complex cyst on the right ovary that measures 3 cm. This could be hemorrhagic cyst. Correlation with test is recommended.
[2017-12-22 22:38] VITALS: BP 147/80; PULSE 89; TEMP 98.8
== END 2017-12-22 22:37 | disposition home or self-care (01) ==
LOC: EC 18:56
DX: N83.201 Unspecified ovarian cyst, right side (principal); F17.200 Nicotine dependence, unspecified, uncomplicated; Z91.011 Allergy to milk products; Z91.048 Other nonmedicinal substance allergy status; Z91.038 Other insect allergy status
CPT/HCPCS: 36415; 80053; 82150; 83690; 85025; 81001; 81025; 87086; 93975; 76830; 99284; 96374; J1885

== ENCOUNTER 2019-01-21 12:55 | Outpatient (CLI) | payer OTHER ==
[2019-01-21 13:45] VITALS: BP 121/67; PULSE 104; RESP 16; TEMP 98.3
--- NOTE | 2019-02-22 10:11 | P.MSEPDOC ---
Presenting Problems - Arrival Data Date of Arrival on Unit: 01/21/19 Time of Arrival on Unit: 13:06 Mode of Transport: Ambulatory - Complaint OB-Reason for Admission/Chief Complaint: Rule Out PROM Comment: pt arrived c/o questionable rom pt states she ahd a gush of fluid at 11 am clear fluid and some scant leakage after that Medical History - Information : 2 Para: 1 Term: 1 : 0 Abortions: Spontaneous or Elective: 0 Number of Living Children: 1 - Gestational Age Gestational Age by MARY ELLEN (wks/days): 38 Weeks and 3 Days - History Complications: Smoker Review of Systems - Review of Systems Constitutional: No problems Breast: No problems ENT: No problems Cardiovascular: No problems Respiratory: No problems Gastrointestinal: No problems Genitourinary: No problems Musculoskeletal: No problems Neurological: Dizziness Skin: No problems Vital Signs - Temperature Temperature: 98.3 F Temperature Source: Oral - Pulse Right Brachial Pulse Rate: 104 Pulse Assessment Method: Automatic Cuff - Respirations Respiratory Rate: 16 Oxygen Delivery Method: Room Air - Blood Pressure Right Arm Blood Pressure: 121/67 Blood Pressure Mean: 85 Blood Pressure Source: Automatic Cuff Medical Screen Scoring (Pre) - Cervical Exam Dilation: 1-3 cm = 1 Effacement: Exam Deferred Membranes: Intact - Uterine Contractions Frequency: N/A Duration: N/A Intensity: N/A - Maternal Vital Signs Maternal Temperature: N/A Maternal Blood Pressure: N/A Signs of Preeclampsia: Headache = 1 Maternal Respirations: N/A - Pain Assessment Pain Location and Character: Back Pain Scale Used: Numeric (1 - 10) Pain Intensity: 6 Pain Management Goal: 2 Pain Description: Sharp Pain Radiation Location: n/a Pain Frequency: Occasional Pain Behavior: Vocalization Pain Aggravating Factors: Walking Non-Pharmacological Interventions: Relaxation Technique - Maternal Trauma Maternal Trauma: N/A - Assessment Baseline FHR: 130 Heart Rate - NICHD Category: Category I (Normal) = 0 - Total Score Total Score (Pre): 2 Physician Notification (Post) - Physician Notified Physician Notified Date: 01/21/19 Physician Notified Time: 14:45 Spoke With: dr flores New Order Received: Yes - Notification Comment Comment: reactive NST. [place] TO HOME Disposition - Disposition OB Disposition: Discharge to home Discharge Date: 01/21/19 Discharge Time: 14:45 I agree with the RN Medical Screening Exam: Yes Risk & Benefit of care provided described in d/c instruction: Yes Diagnosis: RELATED CONDITIONS, UNSPECIFIED, THIRD TRIMESTER
== END 2019-01-21 14:45 | disposition home or self-care (01) ==
LOC: FBPOP 12:55
PROVIDERS: ATTEND Obstetrics & Gynecology
DX: O26.93 Pregnancy related conditions, unspecified, third trimester (principal); O99.333 Smoking (tobacco) complicating pregnancy, third trimester; F17.200 Nicotine dependence, unspecified, uncomplicated; Z3A.38 38 weeks gestation of pregnancy
CPT/HCPCS: 59025; 84112; 99213

== ENCOUNTER 2019-02-01 13:36 | Inpatient (IN) | payer OTHER ==
[2019-02-04] MEDS ORDERED: TERBUTALINE 1 MG/ML VIAL SQ PRN (06:40)
[2019-02-04] MEDS ORDERED: LIDOCAINE 0.5% (PF) 5 MG/ML (50 ML SDV) SQ PRN (06:40)
[2019-02-04] MEDS ORDERED: METHYLERGONOVINE 0.2 MG/ML 1 ML AMP IM PRN (06:40)
[2019-02-04] MEDS ORDERED: CARBOPROST TROMETHAMINE 250 MCG/ML 1 ML AMP IM PRN (06:40)
[2019-02-04] MEDS ORDERED: OXYTOCIN 10 UNIT/ML 1 ML VIAL IM PRN (06:40)
[2019-02-04] MEDS ORDERED: OXYTOCIN 30 UNITS/500 ML NS 30 UNIT in SALINE 1 500ML.BAG IV SCH (06:45)
[2019-02-04 06:57] VITALS: BMI 29.3
[2019-02-04 06:58] LABS: Basophils % (A) 0 %; Eosinophils # (A) 0.1 k/uL (0-0.7); Eosinophils % (A) 1 %; HCT 33.6 % (34.0-46.0); HGB 11.5 gm/dL (11.4-16.0); Lymphocytes # (A) 2.3 k/uL (1.0-4.8); Lymphocytes % (A) 19 %; MCH 30.5 pg (25.0-35.0); MCHC 34.3 g/dL (31.0-37.0); Mean Platelet Volume 8.1; Monocytes # (A) 0.5 k/uL (0-1.0); Monocytes % (A) 4 %; Neutrophils # (A) 8.9 k/uL (1.3-7.7); Neutrophils % (A) 74 %; Platelet Count 248 k/uL (150-450); RBC 3.77 m/uL (3.80-5.40); RDW 14.7 % (11.5-15.5); WBC 12.1 k/uL (3.8-10.6)
[2019-02-04] MEDS: LACTATED RINGERS 1,000 ML IV SCH ×2 (07:04→09:07)
[2019-02-04] MEDS ORDERED: BUTORPHANOL 1 MG/ML 1 ML VIAL IV PRN (08:37)
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
[2019-02-04] MEDS ORDERED: ROPIVACAINE 5MG/ML 20ML VIAL ONE (08:44)
[2019-02-04] MEDS ORDERED: SODIUM CHLORIDE 0.9% 100 ML BAG ONE (08:44)
[2019-02-04] MEDS ORDERED: fentaNYL (PF) 50 MCG/ML 5 ML AMP ONE (08:44)
[2019-02-04] MEDS ORDERED: diphenhydrAMINE 50 MG/ML 1 ML VIAL IVP PRN ×3 (12:41→15:31)
[2019-02-04] MEDS ORDERED: ACETAMINOPHEN TAB 325 MG TAB PO PRN (15:31)
[2019-02-04] MEDS ORDERED: diphenhydrAMINE 50 MG CAP PO PRN (15:31)
[2019-02-04] MEDS ORDERED: SIMETHICONE 80 MG CHEWABLE PO PRN (15:31)
[2019-02-04] MEDS ORDERED: BENZOCAINE/MENTHOL SPRAY 1 GM/SPRAY AEROSOL TOPICAL PRN (15:31)
[2019-02-04] MEDS ORDERED: diphenhydrAMINE 25 MG CAP PO PRN (15:31)
[2019-02-04] MEDS ORDERED: HYDROCORTISONE 2.5% RECTAL CREAM 30 GM TUBE RECTAL PRN (15:31)
[2019-02-04] MEDS ORDERED: ZOLPIDEM 5 MG TAB PO PRN (15:31)
[2019-02-04] MEDS ORDERED: HYDROcodone/APAP 5-325MG 1 EACH TAB PO PRN (15:31)
[2019-02-04] MEDS ORDERED: LANOLIN CREAM 5 GM TUBE TOPICAL PRN (15:31)
[2019-02-04] MEDS ORDERED: WITCH HAZEL 1 EACH MED..PAD TOPICAL PRN (15:31)
[2019-02-04] MEDS ORDERED: HYDROcodone/APAP 7.5-325MG 1 EACH TAB PO PRN (15:31)
--- NOTE | 2019-02-04 15:35 | P.PROBDLV ---
Vaginal Delivery Note - . Vaginal Delivery Note: The patient is a 23-year-old 2 para 1001 admitted at 40-3/7 weeks by good dating parameters. She is admitted for induction of labor with a favorable cervix. Her has been uncomplicated and group B strep status is negative. On labor and delivery, she had Pitocin started followed by artificial rupture of membranes demonstrating clear fluid. She had an epidural catheter placed for analgesia and then made fairly quick inconsistent progress through t he active phase of labor to complete. She pushed over the course of 15 minutes to a normal spontaneous vaginal delivery of a viable 8 lbs. 7 oz. baby boy with Apgars of 9 at 1 minute and 9 at 5 minutes delivered in the right occiput anterior position. The placenta was delivered spontaneously, intact, and grossly normal with a grossly normal three-vessel cord inserted approximate 4 cm from the margin of the placental disc. There were no lacerations of the perineum, vagina, or cervix. Estimated blood loss for the case is approximately 100 mL. There were no complications. Both mother and are resting comfortably in recovery.
[2019-02-04] MEDS ORDERED: OXYTOCIN 20 UNITS/1000 ML NS 1,000 ML IV SCH (15:45)
[2019-02-04] MEDS: IBUPROFEN 600 MG TAB PO PRN (16:15)
[2019-02-04] MEDS: SENNOSIDES-DOCUSATE SODIUM 1 EACH TAB PO SCH (19:40)
[2019-02-05] MEDS: IBUPROFEN 600 MG TAB PO PRN ×3 (02:14→16:15)
[2019-02-05] MEDS: SENNOSIDES-DOCUSATE SODIUM 1 EACH TAB PO SCH (08:24)
--- NOTE | 2019-02-05 10:00 | P.DS ---
Providers Date of admission: 02/04/19 06:26 Expected date of discharge: 02/05/19 Attending physician: Edward Jasmine Primary care physician: Stated None - Discharge Diagnosis(es) (1) Term Current Visit: Yes Status: Acute (2) Normal spontaneous vaginal delivery Current Visit: Yes Status: Acute Hospital Course: The patient is a 23-year-old 2 para 1001 admitted at 40-3/7 weeks by good dating parameters. She is admitted for postdates induction of labor with all signs reassuring. Her has been uncomplicated and group B strep status is negative. On labor and delivery, she had Pitocin started followed by artificial rupture of membranes demonstrating clear fluid. She later had an epidural catheter placed for analgesia and made fairly quick progress through the active phase of labor to complete. She then pushed to a normal spontaneous vaginal delivery of a viable 8 lbs. 7 oz. baby boy with Apgars of 9 at 1 minute and 9 at 5 minutes. Her post course was unremarkable with vital signs remaining stable and her temperature was afebrile throughout. She was deemed stable for discharge on day 1 was discharged home to follow-up in the office in 6 weeks' time routinely. Discharge instructions included calling for any significantly increased bleeding or foul-smelling lochia, significantly increased fever or abdominal pain, perineal complaints, breast complaints, or anything else that concerned her. She was additionally instructed to have nothing in the vagina and for at least 6 weeks time to include intercourse. She understood her instructions and agrees to follow up as noted above. Discharge medications included continued vitamins as she has opted to breast-feed as well as [id number] analgesic pain medications. Maternal blood type is O+ and rubella status is immune. Procedures: #1. Pitocin induction #2. Artificial rupture of membranes #3. Epidural analgesia #4. Normal spontaneous vaginal delivery Patient Condition at Discharge: Good Plan - Discharge Summary New Discharge Prescriptions: No Action Pnv No.95/Ferrous Fum/Folic AC [ Multivitamin Tablet] 1 tab PO DAILY Omeprazole 1 tab PO DAILY Sertraline [Zoloft] 25 mg PO DAILY Discharge Medication List Pnv No.95/Ferrous Fum/Folic AC [ Multivitamin Tablet] 1 tab PO DAILY 01/21/19 [History] Omeprazole 1 tab PO DAILY 02/04/19 [History] Sertraline [Zoloft] 25 mg PO DAILY 02/04/19 [History] Follow up Appointment(s)/Referral(s): Edward Jasmine MD [STAFF PHYSICIAN] - 6 Weeks Discharge Disposition: HOME SELF-CARE
[2019-02-05 16:08] VITALS: BP 122/65; PULSE 95; RESP 14; TEMP 98.4
== END 2019-02-05 17:05 | disposition home or self-care (01) | DRG 806 ==
LOC: 4FBP 02-04 06:26
PROVIDERS: ADMIT Obstetrics & Gynecology; ATTEND Obstetrics & Gynecology
PROC: 10E0XZZ Delivery of Products of Conception, External Approach (ICD-10-PCS; principal; 2019-02-04)
PROC: 10907ZC Drainage of Amniotic Fluid, Therapeutic from Products of Conception, Via Natural or Artificial Opening (ICD-10-PCS; 2019-02-04)
PROC: 3E033VJ Introduction of Other Hormone into Peripheral Vein, Percutaneous Approach (ICD-10-PCS; 2019-02-04)
PROC: 00HU33Z Insertion of Infusion Device into Spinal Canal, Percutaneous Approach (ICD-10-PCS; 2019-02-04)
PROC: 3E0R3BZ Introduction of Anesthetic Agent into Spinal Canal, Percutaneous Approach (ICD-10-PCS; 2019-02-04)
DX: O48.0 Post-term pregnancy (principal); O99.354 Diseases of the nervous system complicating childbirth; Z37.0 Single live birth; O99.344 Other mental disorders complicating childbirth; O99.334 Smoking (tobacco) complicating childbirth; F17.200 Nicotine dependence, unspecified, uncomplicated; F43.10 Post-traumatic stress disorder, unspecified; F60.9 Personality disorder, unspecified; F41.9 Anxiety disorder, unspecified; F32.9 Major depressive disorder, single episode, unspecified; O99.62 Diseases of the digestive system complicating childbirth; K21.9 Gastro-esophageal reflux disease without esophagitis; G43.909 Migraine, unspecified, not intractable, without status migrainosus; Z3A.40 40 weeks gestation of pregnancy; Z79.899 Other long term (current) drug therapy; Z91.410 Personal history of adult physical and sexual abuse; Z81.8 Family history of other mental and behavioral disorders; Z91.5 Personal history of self-harm; Z91.038 Other insect allergy status
CPT/HCPCS: 85025; 86850; 86900; 86901

== ENCOUNTER → 2019-02-20 | Outpatient (CLI) | payer OTHER ==
--- NOTE | 2019-02-20 11:52 | XR ---
EXAMINATION TYPE: XR ribs RT w pa chest xray DATE OF EXAM: 02/20/2019 COMPARISON: NONE HISTORY: Right rib pain TECHNIQUE: Right ribs are examined in 2 views. Exam is supplemented with a frontal chest. FINDINGS: Size is normal. Pulmonary vasculature is normal. The lungs are clear. No displaced rib fractures are evident. IMPRESSION: Normal right ribs
== END | disposition home or self-care (01) ==
LOC: RADXRYALE 11:30
PROVIDERS: ATTEND Internal Medicine
DX: R07.81 Pleurodynia (principal)

== ENCOUNTER 2019-02-23 00:57 | Observation (INO) | payer OTHER ==
--- NOTE | 2019-02-23 01:34 | ED ---
Abdominal Pain HPI - General Chief Complaint: Abdominal Pain Stated Complaint: Rib Pain Time Seen by Provider: 02/23/19 01:08 Source: EMS Mode of arrival: EMS - History of Present Illness Initial Comments: This patient is a 23-year-old woman who is transferred here from [facility] [place] area she states that she has been having right upper quadrant pain which let her to go to the hospital there. She states that she first started experiencing this midway through her first which was approximately 18 months ago. She states symptoms have been intermittent since that time, though they seemed to become more regular while she was having her second . She states she delivered proximal 2 weeks ago. The patient states the pain is sharp, has been more constant over the past couple of days. She states it is moderately severe now those worse before she had some pain medication. She had not noted other worsening or relieving factors. She denies any associated symptoms. MD Complaint: abdominal pain -: month(s) Location: RUQ Radiation: none Migration to: no migration Severity: moderate Quality: stabbing Consistency: intermittent Improves With: nothing Worsens With: nothing Associated Symptoms: denies other symptoms - Related Data Home Medications Medication Instructions Recorded Confirmed Pnv No.95/Ferrous Fum/Folic AC 1 tab PO DAILY 01/21/19 02/04/19 [ Multivitamin Tablet] Omeprazole 1 tab PO DAILY 02/04/19 02/04/19 Sertraline [Zoloft] 25 mg PO DAILY 02/04/19 02/04/19 Allergies Allergy/AdvReac Type Severity Reaction Status Date / Time adhesive Allergy Rash/Hives Verified 02/23/19 01:06 insect venom Allergy Anaphylaxis Verified 02/23/19 01:06 Review of Systems ROS Statement: Those systems with pertinent positive or pertinent negative responses have been documented in the HPI. ROS Other: All systems not noted in ROS Statement are negative. Constitutional: Denies: fever, chills Respiratory: Denies: cough, dyspnea Cardiovascular: Denies: chest pain, palpitations, orthopnea, edema, syncope Gastrointestinal: Reports: abdominal pain. Denies: vomiting, diarrhea, constipation, melena, hematochezia Genitourinary: Reports: other (Still having small amount of lochia). Denies: dysuria, frequency, hematuria Musculoskeletal: Denies: back pain Skin: Denies: rash Neurological: Denies: headache, weakness, numbness Past Medical History Past Medical History: Musculoskeletal Disorder Additional Past Medical History / Comment(s): chiari syndrome, bilateral hip tendanitis (r/t basic training) migraines History of Any Multi-Drug Resistant Organisms: None Reported Past Surgical History: No Surgical Hx Reported Additional Past Surgical History / Comment(s): wisdom teeth removed Past Anesthesia/Blood Transfusion Reactions: No Reported Reaction Past Psychological History: Anxiety, Bipolar, Depression, PTSD Smoking Status: Former smoker Past Alcohol Use History: None Reported Past Drug Use History: None Reported - Past Family History Mother Additional Family Medical History / Comment(s): bipolar, Schizophrenia General Exam General appearance: alert, in no apparent distress Head exam: Present: atraumatic, normocephalic Eye exam: Present: normal appearance. Absent: scleral icterus, conjunctival injection ENT exam: Present: normal oropharynx Respiratory exam: Present: normal lung sounds bilaterally. Absent: respiratory distress, wheezes, rales, rhonchi, stridor Cardiovascular Exam: Present: regular rate, normal rhythm, normal heart sounds. Absent: systolic murmur, diastolic murmur, rubs, gallop GI/Abdominal exam: Present: soft, tenderness (Mild right upper quadrant tenderness), normal bowel sounds. Absent: distended, guarding, rebound, rigid, organomegaly, mass, pulsatile mass, hernia Extremities exam: Present: normal inspection, normal capillary refill. Absent: pedal edema, calf tenderness Back exam: Present: normal inspection. Absent: CVA tenderness (R), CVA tenderness (L) Neurological exam: Present: alert Skin exam: Present: warm, dry, intact, normal color. Absent: rash Course Vital Signs 02/23/19 01:02 Temperature 97.8 F Pulse Rate 59 L Respiratory 16 Rate Blood Pressure 109/73 O2 Sat by Pulse 96 Oximetry Disposition Clinical Impression: Abdominal pain, Transaminitis Disposition: ADMITTED IP TO THIS HOSP Condition: Fair Is patient prescribed a controlled substance at d/c from ED?: No Referrals: Erendira Monroy MD [Primary Care Provider] - 1-2 days
--- NOTE | 2019-02-23 01:49 | US ---
EXAM: US Abdomen Limited, Right Upper Quadrant CLINICAL HISTORY: ITS.REASON US Reason: Pain, attention RUQ TECHNIQUE: Real-time ultrasound of the right upper quadrant with image documentation. COMPARISON: No relevant prior studies available. FINDINGS: Liver: Unremarkable. No mass. No intrahepatic bile duct dilation. Gallbladder: Multiple gallstones. No wall thickening. No pericholecystic fluid. Common bile duct: Unremarkable. No stones. No dilation. Pancreas: Unremarkable. Right kidney: No stones. No solid mass. No hydronephrosis. IMPRESSION: Cholelithiasis without evidence of cholecystitis.
[2019-02-23] MEDS ORDERED: MORPHINE SULFATE 4 MG/ML SYRINGE IV PRN (03:22)
[2019-02-23] MEDS ORDERED: ONDANSETRON 4 MG/2 ML VIAL IVP PRN (03:22)
[2019-02-23] MEDS ORDERED: NALOXONE 0.4 MG/ML 1 ML VIAL IV PRN (03:22)
[2019-02-23] MEDS: SODIUM CHLORIDE 0.9% 1,000 ML IV SCH ×3 (03:57→19:07)
[2019-02-23] MEDS: FAMOTIDINE 20 MG TAB PO SCH ×2 (07:58→19:07)
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
[2019-02-23] MEDS ORDERED: MORPHINE SULFATE 2 MG/ML SYRINGE IV PRN (11:57)
[2019-02-23] MEDS ORDERED: PIPERACILLIN-TAZOBACTAM 3.375 GM in SODIUM CHLORIDE 0.9% 100 ML IVPB SCH (12:00)
[2019-02-23 12:53] LABS: ALT 65 U/L (9-52); AST 54 U/L (14-36); Albumin 3.4 g/dL (3.5-5.0); Alkaline Phosphatase 158 U/L (38-126); Anion Gap 5 mmol/L; Blood Urea Nitrogen 10 mg/dL (7-17); Carbon Dioxide 23 mmol/L (22-30); Chloride 112 mmol/L (98-107); Glucose 92 mg/dL (74-99); Potassium 3.8 mmol/L (3.5-5.1); Sodium 140 mmol/L (137-145); Total Bilirubin 0.6 mg/dL (0.2-1.3); Total Protein 5.7 g/dL (6.3-8.2)
[2019-02-23 13:04] LABS: Basophils # (A) 0.1 k/uL (0-0.2); Basophils % (A) 1 %; Eosinophils # (A) 0.2 k/uL (0-0.7); Eosinophils % (A) 3 %; HCT 37.2 % (34.0-46.0); HGB 11.9 gm/dL (11.4-16.0); Lymphocytes # (A) 1.9 k/uL (1.0-4.8); Lymphocytes % (A) 27 %; MCH 28.5 pg (25.0-35.0); MCHC 31.9 g/dL (31.0-37.0); MCV 89.3 fL (80.0-100.0); Mean Platelet Volume 7.8; Monocytes # (A) 0.4 k/uL (0-1.0); Monocytes % (A) 5 %; Neutrophils # (A) 4.4 k/uL (1.3-7.7); Neutrophils % (A) 63 %; Platelet Count 289 k/uL (150-450); RBC 4.16 m/uL (3.80-5.40); RDW 14.5 % (11.5-15.5)
[2019-02-23] MEDS: HEPARIN SODIUM,PORCINE 5,000 UNIT/ML 1 ML VIAL SQ SCH ×2 (16:04→23:03)
[2019-02-23] MEDS: PIPERACILLIN-TAZOBACTAM 3.375 GM in SODIUM CHLORIDE 0.9% 100 ML IVPB SCH (23:08)
[2019-02-24] MEDS: SODIUM CHLORIDE 0.9% 1,000 ML IV SCH ×3 (04:17→20:19)
[2019-02-24 07:47] LABS: ALT 48 U/L (9-52); AST 29 U/L (14-36); Albumin 3.4 g/dL (3.5-5.0); Alkaline Phosphatase 147 U/L (38-126); Anion Gap 5 mmol/L; Blood Urea Nitrogen 7 mg/dL (7-17); Carbon Dioxide 23 mmol/L (22-30); Chloride 112 mmol/L (98-107); Glucose 80 mg/dL (74-99); Potassium 4.4 mmol/L (3.5-5.1); Sodium 140 mmol/L (137-145); Total Bilirubin 0.7 mg/dL (0.2-1.3); Total Protein 5.7 g/dL (6.3-8.2)
[2019-02-24] MEDS ORDERED: BUPIVACAIN-EPI 0.25%-1:200,000 30 ML VIAL SQ ONE ×2 (08:36)
[2019-02-24] MEDS ORDERED: MIDAZOLAM 2 MG/2 ML VIAL IV PRN (08:38)
[2019-02-24] MEDS ORDERED: HYDROmorphone 0.5 MG/0.5 ML SYRINGE IVP PRN (08:38)
[2019-02-24] MEDS ORDERED: LIDOCAINE 1% 20 ML VIAL (10MG/ML) FOR IV START INTRADERMA PRN (08:38)
[2019-02-24] MEDS ORDERED: DEXAMETHASONE SOD PHOSPHATE 10 MG/ML 1 ML VIAL IV ONE (08:38)
[2019-02-24] MEDS ORDERED: LACTATED RINGERS 1,000 ML IV SCH (08:45)
[2019-02-24] MEDS ORDERED: KETOROLAC 30 MG/ML 1 ML VIAL ONE (08:56)
[2019-02-24] MEDS ORDERED: GLYCOPYRROLATE 0.2 MG/ML 2 ML VIAL ONE (08:56)
[2019-02-24] MEDS ORDERED: NEOSTIGMINE 1 MG/ML 10 ML VIAL ONE (08:56)
[2019-02-24] MEDS ORDERED: LIDOCAINE 1% INJ 10MG/ML (20 ML MDV) ONE (08:56)
[2019-02-24] MEDS ORDERED: fentaNYL (PF) 50 MCG/ML 2 ML AMP ONE (08:56)
[2019-02-24] MEDS ORDERED: ROCURONIUM BROMIDE 10 MG/ML 10 ML VIAL IV ONE (08:56)
[2019-02-24] MEDS ORDERED: MIDAZOLAM 2 MG/2 ML VIAL ONE (08:56)
[2019-02-24] MEDS ORDERED: HYDROmorphone (PF) 1 MG/ML ONE (08:56)
[2019-02-24] MEDS ORDERED: SUCCINYLCHOLINE CHLORIDE 100 MG/5 ML SYR IV ONE (08:56)
[2019-02-24] MEDS ORDERED: LACTATED RINGERS 1,000 ML IV ONE ×2 (08:59→10:22)
[2019-02-24 09:16] LABS: Basophils # (A) 0.1 k/uL (0-0.2); Basophils % (A) 1 %; Eosinophils # (A) 0.1 k/uL (0-0.7); Eosinophils % (A) 2 %; HCT 39.4 % (34.0-46.0); HGB 12.2 gm/dL (11.4-16.0); Hypochromasia Slight; Lymphocytes # (A) 1.7 k/uL (1.0-4.8); Lymphocytes % (A) 24 %; MCH 28.2 pg (25.0-35.0); Mean Platelet Volume 8.4; Monocytes # (A) 0.4 k/uL (0-1.0); Monocytes % (A) 5 %; Neutrophils # (A) 4.6 k/uL (1.3-7.7); Neutrophils % (A) 67 %; Platelet Count 260 k/uL (150-450); RBC 4.33 m/uL (3.80-5.40); RDW 14.7 % (11.5-15.5)
--- NOTE | 2019-02-24 10:04 | P.OP ---
Date of Procedure: 02/24/19 Preoperative Diagnosis: Cholecystitis Postoperative Diagnosis: Cholecystitis Procedure(s) Performed: Laparoscopic cholecystectomy Anesthesia: MYKE Surgeon: Danielle Rothman Pathology: other (Gallbladder) Condition: stable Disposition: floor Indications for Procedure: 23-year-old female presented from an outside facility secondary to cholecystitis. Plan was made for laparoscopic cholecystectomy. The patient was explained the risks, benefits and alternatives prior to being taken to the operating suite. Operative Findings: Peritoneal attachments to the gallbladder Edematous gallbladder Description of Procedure: The patient was brought into the operating suite and placed in supine position on the operating table. Sedation was provided by anesthesia and the patient underwent endotracheal intubation. The patient was then prepped and draped in r egular sterile fashion. A infraumbilical incision was made and dissection was carried to the fascia. The fascia was incised and an 11 mm trocar was placed. Pneumoperitoneum was then achieved. 3 additional ports were then placed within the abdomen. A 5 mm subxiphoid port was placed. 25 mm ports were placed in the right upper quadrant. The gallbladder was then grasped and retracted. Dissecti on was carried to skeletonize both the cystic duct and the cystic artery. Peritoneal attachments were dissected. The cystic duct was skeletonized. 2 clips were placed proximally one was placed distally and the cystic duct was ligated. The cystic artery was then skeletonized in a similar fashion. 2 clips were placed proximally one was placed distally and the cystic artery was ligated. A elective cautery was then used to dissect the gallbladder from the gallbladder fossa. Hemostasis was maintained. The gallbladder was then placed in an Endo Catch bag and removed from the abdomen from the infra local incision site. Irrigation was then used in the right upper quadrant. Hemostasis was noted to be maintained. Pneumoperitoneum was then released and all ports were removed from the abdomen. The fascia at the infra umbilical site was closed with multiple 0 Vicryl interrupted suture. All skin incisions were closed with 4-0 Vicryl subcuticular suture. The patient was awakened in the operating suite and taken to postanesthesia care unit in stable condition.
[2019-02-24] MEDS ORDERED: MEPERIDINE 50 MG/ML SYRINGE IVP ONE (10:10)
[2019-02-24] MEDS ORDERED: ONDANSETRON 4 MG/2 ML VIAL IVP ONE (10:10)
[2019-02-24] MEDS: FAMOTIDINE 20 MG TAB PO SCH ×2 (10:20→20:21)
[2019-02-24] MEDS: HEPARIN SODIUM,PORCINE 5,000 UNIT/ML 1 ML VIAL SQ SCH ×2 (10:20→18:56)
[2019-02-24 10:26] VITALS: RESP 16
[2019-02-24 10:54] VITALS: PULSE 58
[2019-02-24] MEDS: PIPERACILLIN-TAZOBACTAM 3.375 GM in SODIUM CHLORIDE 0.9% 100 ML IVPB SCH (13:21)
[2019-02-24] MEDS: ACETAMINOPHEN TAB 325 MG TAB PO PRN ×2 (13:35→18:59)
[2019-02-24 15:35] VITALS: BP 122/82; TEMP 98.3
--- NOTE | 2019-02-25 08:46 | P.DS ---
Providers Date of admission: 02/23/19 03:24 Attending physician: Danielle Rothman DO Primary care physician: Erendira Monroy - Discharge Diagnosis(es) (1) Cholecystitis Status: Acute Hospital Course: 23-year-old female presented to the emergency dpt as a transfer from an outside facility Secondary to right upper quadrant pain. Plan was made for a laparoscopic cholecystectomy after blood work was completed. Ultrasound did not show any evidence of common bile duct dilation or obstruction. Postoperatively, the patient did well and was taken to the medical surgical floor. Her diet was advanced. She requested early discharge and stated her pain was well-controlled. Procedures: laparoscopic cholecystectomy Patient Condition at Discharge: Fair Plan - Discharge Summary Discharge Rx Participant: Yes New Discharge Prescriptions: New HYDROcodone/APAP 5-325MG [Richardson 5-325] 1 tab PO Q6HR PRN 3 Days #12 tab PRN Reason: Pain Continue Pnv No.95/Ferrous Fum/Folic AC [ Multivitamin Tablet] 1 tab PO DAILY Omeprazole 20 mg PO AC-BID Sertraline [Zoloft] 25 mg PO DAILY Discharge Medication List Pnv No.95/Ferrous Fum/Folic AC [ Multivitamin Tablet] 1 tab PO DAILY 01/21/19 [History] Omeprazole 20 mg PO AC-BID 02/04/19 [History] Sertraline [Zoloft] 25 mg PO DAILY 02/04/19 [History] HYDROcodone/APAP 5-325MG [Richardson 5-325] 1 tab PO Q6HR PRN 3 Days #12 tab 02/24/19 [Rx] Follow up Appointment(s)/Referral(s): Erendria Monroy MD [Primary Care Provider] - 1-2 days Danielle Rothman DO [Doctor of Osteopathic Medicine] - 10 Days Patient Instructions/Handouts: *Surgery [facility] - Laparoscopic Cholecystectomy Discharge Instructions Activity/Diet/Wound Care/Special Instructions: Okay to shower, do not scrub on incisions and pat yourself dry No lifting greater than 5-7 pounds for 2 weeks. Continue to increase her activity daily Stay away from fatty, greasy, fried foods for 3-4 weeks. Discharge Disposition: HOME SELF-CARE
== END 2019-02-24 21:08 | disposition home or self-care (01) ==
LOC: EC 00:57 → 4SSUR 03:24
PROVIDERS: ADMIT Surgery; ATTEND Surgery
DX: K80.10 Calculus of gallbladder with chronic cholecystitis without obstruction (principal); F41.9 Anxiety disorder, unspecified; F43.10 Post-traumatic stress disorder, unspecified; F31.4 Bipolar disorder, current episode depressed, severe, without psychotic features; R74.0 Nonspecific elevation of levels of transaminase and lactic acid dehydrogenase [LDH]; I82.0 Budd-Chiari syndrome; G43.909 Migraine, unspecified, not intractable, without status migrainosus; Z79.899 Other long term (current) drug therapy; Z91.048 Other nonmedicinal substance allergy status; Z91.09 Other allergy status, other than to drugs and biological substances; Z98.890 Other specified postprocedural states; F17.200 Nicotine dependence, unspecified, uncomplicated; Z91.410 Personal history of adult physical and sexual abuse; Z81.8 Family history of other mental and behavioral disorders
CPT/HCPCS: 47562; 99285; 88304; 80053 ×2; 85025 ×2; 76705; G0378 ×2; J2543; J2250; J2710; J2175; J2405; J2001; J3010; J1885; J1170 ×2; J0330

== ENCOUNTER → 2019-03-13 | Outpatient (CLI) | payer OTHER ==
[2019-03-13 11:35] LABS: Basophils # (A) 0.1 k/uL (0-0.2); Basophils % (A) 1 %; Eosinophils # (A) 0.2 k/uL (0-0.7); Eosinophils % (A) 2 %; HCT 44.8 % (34.0-46.0); HGB 13.7 gm/dL (11.4-16.0); Lymphocytes # (A) 2.4 k/uL (1.0-4.8); Lymphocytes % (A) 29 %; MCH 28.3 pg (25.0-35.0); MCHC 30.6 g/dL (31.0-37.0); MCV 92.6 fL (80.0-100.0); Mean Platelet Volume 7.9; Monocytes # (A) 0.4 k/uL (0-1.0); Monocytes % (A) 5 %; Neutrophils # (A) 5.1 k/uL (1.3-7.7); Neutrophils % (A) 61 %; Platelet Count 270 k/uL (150-450); RBC 4.84 m/uL (3.80-5.40); RDW 15.4 % (11.5-15.5); WBC 8.4 k/uL (3.8-10.6)
== END | disposition home or self-care (01) ==
LOC: LABPAT 10:19
PROVIDERS: ATTEND Obstetrics & Gynecology
DX: Z01.812 Encounter for preprocedural laboratory examination (principal); Z31.84 Encounter for fertility preservation procedure
CPT/HCPCS: 36415; 85025

== ENCOUNTER 2019-03-25 07:46 | Day surgery (SDC) | payer OTHER ==
[2019-03-18 16:42] VITALS: BMI 24.0
[~2019-03-25 07:46] MED LIST: DEXAMETHASONE SOD PHOSPHATE 10 MG/ML 1 ML VIAL IV ONE; LACTATED RINGERS 1,000 ML IV SCH; LIDOCAINE 1% 20 ML VIAL (10MG/ML) FOR IV START INTRADERMA PRN; MIDAZOLAM 2 MG/2 ML VIAL IV PRN; Pre Op ABX Message 1 EACH MISC MISCELLANE ONE; fentaNYL (PF) 50 MCG/ML 2 ML AMP IV PRN
[2019-03-25] MEDS ORDERED: ONDANSETRON 4 MG/2 ML VIAL IVP ONE (08:38)
[2019-03-25] MEDS ORDERED: FAMOTIDINE 20 MG/2 ML VIAL IVP ONE (08:54)
[2019-03-25] MEDS ORDERED: METOCLOPRAMIDE 5 MG/ML 2 ML VIAL IVP ONE (08:55)
[2019-03-25] MEDS ORDERED: fentaNYL (PF) 50 MCG/ML 2 ML AMP ONE (09:18)
[2019-03-25] MEDS ORDERED: NEOSTIGMINE 1 MG/ML 10 ML VIAL ONE (09:18)
[2019-03-25] MEDS ORDERED: HYDROmorphone (PF) 1 MG/ML ONE (09:18)
[2019-03-25] MEDS ORDERED: LIDOCAINE 1% INJ 10MG/ML (20 ML MDV) ONE (09:18)
[2019-03-25] MEDS ORDERED: ROCURONIUM BROMIDE 10 MG/ML 10 ML VIAL IV ONE (09:18)
[2019-03-25] MEDS ORDERED: ACETAMINOPHEN IV (For NPO) 1,000 MG/100 ML VIAL ONE (09:18)
[2019-03-25] MEDS ORDERED: GLYCOPYRROLATE 0.2 MG/ML 2 ML VIAL ONE (09:18)
[2019-03-25] MEDS ORDERED: PROPOFOL 10 MG/ML 20 ML VIAL IV ONE (09:18)
[2019-03-25] MEDS ORDERED: SUCCINYLCHOLINE CHLORIDE 100 MG/5 ML SYR IV ONE (09:18)
[2019-03-25] MEDS ORDERED: KETOROLAC 30 MG/ML 1 ML VIAL ONE (09:18)
[2019-03-25] MEDS ORDERED: MIDAZOLAM 2 MG/2 ML VIAL ONE (09:18)
[2019-03-25] MEDS ORDERED: diphenhydrAMINE 50 MG/ML 1 ML VIAL IVP PRN (09:21)
[2019-03-25] MEDS ORDERED: SIMETHICONE 80 MG CHEWABLE PO PRN (09:21)
[2019-03-25] MEDS ORDERED: Acetaminophen-Codeine 300-30mg TAB PO PRN ×2 (09:21)
[2019-03-25] MEDS ORDERED: IBUPROFEN 600 MG TAB PO PRN (09:21)
[2019-03-25] MEDS ORDERED: KETOROLAC 30 MG/ML 1 ML VIAL IVP PRN (09:21)
[2019-03-25] MEDS ORDERED: ONDANSETRON 4 MG/2 ML VIAL IVP PRN (09:21)
[2019-03-25] MEDS ORDERED: METOCLOPRAMIDE 5 MG/ML 2 ML VIAL IVP PRN (09:21)
[2019-03-25] MEDS ORDERED: LACTATED RINGERS 1,000 ML IV SCH (09:30)
[2019-03-25] MEDS ORDERED: BUPIVACAINE (PF) 0.5% 30 ML VIAL SQ ONE ×2 (09:50→09:56)
--- NOTE | 2019-03-25 10:02 | P.OP ---
Date of Procedure: 03/25/19 Preoperative Diagnosis: #1. Undesired fertility Postoperative Diagnosis: Same Procedure(s) Performed: #1. Laparoscopic bilateral tubal occlusion with Filshie clips Anesthesia: MYKE Surgeon: Edward Jasmine Estimated Blood Loss (ml): 5 IV fluids (ml): 600 Urine output (ml): 10 Pathology: none sent Condition: stable Disposition: PACU Operative Findings: Preoperative pelvic examination demonstrated a 4-5 week anteverted mobile normal shaped uterus with normal adnexa bilaterally. Intraoperatively, the uterus, tubes, and ovaries were entirely normal to inspection. There was an ovulatory- appearing cyst on the left ovary which was benign in nature. A Filshie clip was placed across the entire thickness of the fallopian tube in the isthmic portion approximately 2-3 cm from the cornu on each side. There was no evidence of en dometriosis or other pathology in the pelvis other was a small amount of blood present which may have represented retrograde menstruation. There was some scarring in the area of the ileocecal junction likely from a previous appendicitis and appendiceal surgery. The upper abdomen appeared otherwise normal. There also appeared to be an omental adhesion at the umbilicus from previous laparoscopic surgery which was seen during entry. Description of Procedure: Patient was prepped and draped in usual fashion after general endotracheal anesthesia was administered by the anesthesiologist. A weighted speculum was placed and the anterior lip the cervix grasped with single-tooth tenaculum allowing placement of an acorn cannula for manipulation. The bladder was draining approximately 10 mL of clear flora urine. Attention was turned to the abdomen where a 5 mm incision was made in the transverse plane through pre- existing scar just beneath the umbilicus allowing insertion of a 5 mm optical trocar under direct visualization without difficulty. A pneumoperitoneum was then established. A site was selected approximately 4-5 mm above the pubic symphysis in the midline where an 8 mm incision was made allowing insertion of an 8 mm optical trocar under direct visualization without difficulty. The blunt probe and Trendelenburg positioning were utilized to sweep the bowel from the pelvis and the findings are as noted above. There is no evidence of pathology throughout the entire pelvis. The probe was replaced with a Filshie clip applicator which was utilized to place a clip across the full thickness of the fallopian tube in the isthmic portion approximately 2-3 cm from the cornu on the right side where was firmly affixed. A similar operation was carried on the left side without difficulty. The applicator was replaced with a probe and the upper abdomen explored with findings as noted above. There was a moderate amount of scarring in the area of the ileocecal junction, likely from previous appendiceal surgery. The remainder of the upper abdomen was normal. After ensuring no further pathology, the pneumoperitoneum was evacuated through the 2 ports and the ports removed without difficulty. The skin was reapproximated with interrupted subcuticular stitches of 4-0 Vicryl followed by half-inch Steri-Strips with Mastisol. Estimated blood loss for the case was less than 5 mL. There are no complications. The 2 incisions were infused with a total of 9 mL of half percent Marcaine without epinephrine equally divided between the 2 incisions. All sponge, instrument, needle counts were correct. The patient tolerated the procedure well and proceeded to the recovery room in stable condition.
[2019-03-25 10:18] VITALS: TEMP 97.7
[2019-03-25 10:30] VITALS: RESP 16
[2019-03-25] MEDS ORDERED: HYDROmorphone 1 MG/ML 1 ML SYRINGE IVP ONE ×3 (10:38→11:01)
[2019-03-25] MEDS ORDERED: LACTATED RINGERS 1,000 ML IV ONE (10:58)
[2019-03-25 11:42] VITALS: BP 121/78; PULSE 68
== END 2019-03-25 12:04 | disposition home or self-care (01) ==
LOC: OR 07:46
PROVIDERS: ATTEND Obstetrics & Gynecology
DX: Z30.2 Encounter for sterilization (principal); F41.9 Anxiety disorder, unspecified; Z79.899 Other long term (current) drug therapy; Z82.49 Family history of ischemic heart disease and other diseases of the circulatory system; Z83.3 Family history of diabetes mellitus; K21.9 Gastro-esophageal reflux disease without esophagitis; Z88.8 Allergy status to other drugs, medicaments and biological substances
CPT/HCPCS: 81025; 58671; J2250; J1100; J2710; J2765; J2405; J2001; J3010; J1885; J1170; J0131; J0330; J2704